=== PATIENT | female | born 1995 | race African-American/Black ===

== ENCOUNTER 2017-01-27 15:32 | Emergency (ER) | payer BC ==
[~2017-01-27] VITALS: Ht 167.6 cm; Wt 72.0 kg
[2017-01-27] MEDS ORDERED: KETOROLAC 60MG/2ML VIAL IM ONE (22:00)
[2017-01-27 23:04] LABS: BASOPHILS % 0.4 % (0.0-2.0); DIFFERENTIAL COMMENT 0; EOSINOPHILS % 1.1 % (0.0-5.0); HEMATOCRIT. 34.3 % (36.0-48.0); HEMOGLOBIN. 11.2 g/dL (12.0-16.0); LYMPHOCYTES % 25.8 % (20.0-50.0); MEAN CORPUSCULAR HEMOGLOBIN 25.4 pg (28.0-32.0); MEAN CORPUSCULAR HGB CONC 32.6 g/dL (31.0-37.0); MEAN CORPUSCULAR VOLUME 77.7 fL (81.0-99.0); MONOCYTES % 8.2 % (2.0-8.0); NEUTROPHILS % 64.5 % (40.0-76.0); PLATELET 233 x1000/uL (130-400); RED BLOOD CELL COUNT 4.42 mill/uL (4.2-5.4); WHITE BLOOD COUNT 12.3 x1000/uL (4.5-11.0)
[2017-01-27 23:19] LABS: ALANINE AMINOTRANSFERASE 20 IU/L (13-61); ALBUMIN 3.9 g/dL (3.4-5.0); ANION GAP 11; CALCIUM 8.7 mg/dL (8.5-10.1); CARBON DIOXIDE 25 mEq/L (21-32); CHLORIDE 106 mEq/L (98-107); INDEX HEMOLYSI 1 (1-3); INDEX ICTERIC 1 (1-4); INDEX LIPEMIC 1 (1-3); TROPONIN I < 0.02 ng/mL (0.00-0.04); UREA NITROGEN BLOOD 15 mg/dL (7-21); eGFR > 60 mL/min (>60)
[2017-01-27 23:48] VITALS: BP 107/60
== END 2017-01-28 00:23 | disposition home or self-care (01) ==
LOC: ER 20:56
DX: R07.9 Chest pain, unspecified (principal)
CPT/HCPCS: 36415; 71010; 80053; 81025; 84484; 85025; 85379; 93005; 96372; 99285; J1885; Z7610